=== PATIENT | male | born 1995 | race African-American/Black ===

== ENCOUNTER 2022-06-11 14:17 | Emergency (ER) | payer OTHER ==
[~2022-06-11] VITALS: Ht 182.9 cm; Wt 116.2 kg
[2022-06-11 14:18] VITALS: BP 163/84
[2022-06-11 18:37] LABS: BASO % 0.9 % (0.0-1.0); EOS # 0.2 10^3/uL (0.0-0.5); EOS % 4.9 % (0.0-3.0); HEMATOCRIT 41.5 % (42.0-52.0); HEMOGLOBIN 13.7 g/dl (13.5-17.5); LYMPH # 1.6 10^3/uL (1.5-5.0); MEAN CORPUSCULAR HEMOGLOBIN 29.3 pg (27.0-33.0); MEAN CORPUSCULAR VOLUME 88.7 fl (80.0-96.0); MONO # 0.6 10^3/uL (0.0-0.8); MONO % 13.4 % (2.0-8.0); NEUTROPHILS # 2.1 10^3/uL (1.5-8.5); NEUTROPHILS % 45.6 % (36.0-66.0); PLATELET COUNT, AUTOMATED 266 10^3/uL (150-450); RED BLOOD COUNT 4.68 10^6/uL (4.30-6.10); WHITE BLOOD COUNT 4.5 10^3/uL (4.0-10.0)
[2022-06-11 18:58] LABS: BLOOD UREA NITROGEN 17 MG/DL (7-18); CARBON DIOXIDE LEVEL 31 MEQ/L (21-32); CHLORIDE LEVEL 105 MEQ/L (98-107); CREATININE FOR GFR 1.18 MG/DL (0.70-1.30); GLOMERULAR FILTRATION RATE > 60.0 (>60); GLUCOSE, FASTING 91 MG/DL (70-100); POTASSIUM SERUM 4.1 MEQ/L (3.5-5.1); SODIUM LEVEL 138 MEQ/L (136-145)
[2022-06-11 18:59] LABS: ALBUMIN 4.1 GM/DL (3.2-5.2); ALT/SGPT 19 U/L (12-78); BILIRUBIN,DIRECT < 0.1 MG/DL (0.0-0.2); BILIRUBIN,TOTAL 0.4 MG/DL (0.2-1.0); CALCIUM LEVEL 9.3 MG/DL (8.5-10.1); LIPASE 112 U/L (73-393); TOTAL PROTEIN 7.7 GM/DL (6.4-8.2)
[2022-06-12] MEDS ORDERED: IBUP-1022 PO (00:03)
== END 2022-06-12 00:41 | disposition home or self-care (01) ==
LOC: M ED 14:17
DX: T88.1XXA Other complications following immunization, not elsewhere classified, initial encounter (principal); R59.9 Enlarged lymph nodes, unspecified

== ENCOUNTER 2022-10-05 12:17 | Inpatient (IN) | payer OTHER ==
[~2022-10-05] VITALS: Ht 180.3 cm; Wt 120.0 kg
[~2022-10-05 12:17] MED LIST: IBUP-1022 PO
[2022-10-05 17:09] LABS: HEMATOCRIT 48.5 % (42.0-52.0); HEMOGLOBIN 16.3 g/dl (13.5-17.5); MEAN CORPUSCULAR HEMOGLOBIN 29.4 pg (27.0-33.0); MEAN CORPUSCULAR HGB CONC 33.6 g/dl (32.0-36.5); MEAN CORPUSCULAR VOLUME 87.4 fl (80.0-96.0); PLATELET COUNT, AUTOMATED 314 10^3/uL (150-450); RED BLOOD COUNT 5.55 10^6/uL (4.30-6.10); WHITE BLOOD COUNT 6.5 10^3/uL (4.0-10.0)
[2022-10-05 17:46] LABS: ETHYL ALCOHOL (ETHANOL) 0.006 % (0.000-0.010)
[2022-10-05 17:48] LABS: ACETAMINOPHEN LEVEL < 2.0 UG/ML (10.0-20.0); BILIRUBIN,DIRECT 0.2 MG/DL (<0.4); SALICYLATE LEVEL < 3.0 MG/DL (<30)
[2022-10-05 17:51] LABS: THYROID STIMULATING HORMONE 1.071 uIU/ML (0.55-4.78)
[2022-10-05 17:57] LABS: ALBUMIN 4.4 G/DL (3.2-5.2); ALKALINE PHOSPHATASE 69 U/L (46-116); ALT/SGPT 22 U/L (7.0-40); AST/SGOT 31 U/L (<34); BILIRUBIN,TOTAL 0.6 MG/DL (0.3-1.2); BLOOD UREA NITROGEN 12 MG/DL (9-23); CALCIUM LEVEL 9.6 MG/DL (8.5-10.1); CARBON DIOXIDE LEVEL 30 MMOL/L (20-31); CHLORIDE LEVEL 102 MMOL/L (98-107); CREATININE FOR GFR 1.01 MG/DL (0.70-1.30); GLOMERULAR FILTRATION RATE > 60.0 (>60); GLUCOSE, FASTING 87 MG/DL (60-100); POTASSIUM SERUM 4.8 MMOL/L (3.5-5.1); SODIUM LEVEL 140 MMOL/L (136-145); TOTAL PROTEIN 7.8 G/DL (5.7-8.2)
[2022-10-05] MEDS ORDERED: IBUPROFEN 600MG TAB PO PRN (18:50)
[2022-10-05 19:27] LABS: AMPHETAMINES LEVEL URINE NEGATIVE (NEGATIVE)
[2022-10-05 19:28] LABS: BARBITURATES URINE NEGATIVE (NEGATIVE); BENZODIAZEPINES URINE NEGATIVE (NEGATIVE); CANNABINOIDS URINE NEGATIVE (NEGATIVE); COCAINE METABOLITE URINE NEGATIVE (NEGATIVE); METHADONE URINE NEGATIVE (NEGATIVE); OPIATES URINE NEGATIVE (NEGATIVE); PHENCYCLIDINE URINE NEGATIVE (NEGATIVE)
[2022-10-05] MEDS ORDERED: HOME MED LIST COMPLETE! XX SCH (22:05)
[2022-10-06] MEDS ORDERED: MAALOX 30 ML SUSP *UDC PO PRN (13:00)
[2022-10-06] MEDS ORDERED: ACETAMINOPHEN TAB 650MG DOSE (2X325MG) PO PRN (13:00)
[2022-10-06] MEDS ORDERED: MOM 30ML SUSPENSION UDC PO PRN (13:00)
[2022-10-06] MEDS: SERTRALINE HCL 50 MG TAB PO SCH (15:03)
[2022-10-07 06:25] VITALS: BP 138/65
[2022-10-07] MEDS: SERTRALINE HCL 50 MG TAB PO SCH (09:15)
[2022-10-07] MEDS ORDERED: OLANZapine 5 MG TAB PO PRN (13:45)
[2022-10-07 16:25] VITALS: BP 140/84
[2022-10-07] MEDS: traZODone 50 MG TAB PO PRN (21:18)
[2022-10-07] MEDS: PALIPERIDONE 3MG ER TAB (INVEGA) PO SCH (21:18)
[2022-10-08 06:27] VITALS: BP 136/74
[2022-10-08] MEDS: SERTRALINE 100 MG TAB PO SCH (08:48)
[2022-10-08] MEDS: PALIPERIDONE 3MG ER TAB (INVEGA) PO SCH ×2 (08:48→21:44)
[2022-10-08 16:34] VITALS: BP 129/66
[2022-10-08] MEDS: traZODone 50 MG TAB PO PRN (21:44)
[2022-10-09 06:52] VITALS: BP 127/66
[2022-10-09] MEDS: PALIPERIDONE 3MG ER TAB (INVEGA) PO SCH ×2 (09:21→20:54)
[2022-10-09] MEDS: SERTRALINE 100 MG TAB PO SCH (09:21)
[2022-10-09 19:01] VITALS: BP 139/79
[2022-10-09] MEDS: traZODone 50 MG TAB PO PRN (20:54)
[2022-10-10 06:12] VITALS: BP 127/64
[2022-10-10] MEDS ORDERED: ZOLO100T PO (07:48)
[2022-10-10] MEDS ORDERED: PALI1TAB2 PO (07:48)
[2022-10-10] MEDS ORDERED: TRAZ-252 PO (07:48)
[2022-10-10] MEDS: SERTRALINE 100 MG TAB PO SCH (08:31)
[2022-10-10] MEDS: PALIPERIDONE 3MG ER TAB (INVEGA) PO SCH (08:31)
== END 2022-10-10 10:52 | disposition home or self-care (01) | DRG 885 ==
LOC: M ED 12:17 → M ED INP 10-06 13:00 → M PSY 10-06 13:45
PROVIDERS: ADMIT Psychiatry & Neurology Psychiatry; ATTEND Student in an Organized Health Care Education/Training Program
DX: F33.3 Major depressive disorder, recurrent, severe with psychotic symptoms (principal); R45.851 Suicidal ideations; F63.9 Impulse disorder, unspecified; R45.850 Homicidal ideations; G47.00 Insomnia, unspecified

== ENCOUNTER 2024-03-13 06:49 | Emergency (ER) | payer OTHER ==
[~2024-03-13] VITALS: Ht 180.3 cm; Wt 128.5 kg
[~2024-03-13 06:49] MED LIST changes: +PALI1TAB2 PO; +TRAZ-252 PO; +ZOLO100T PO
[2024-03-13] MEDS: ONDANSETRON 4MG ORAL DISINTEGRATING TAB PO ONE (07:28)
[2024-03-13] MEDS ORDERED: DICY-61 PO (08:43)
[2024-03-13] MEDS ORDERED: ONDA4TAB6 PO (08:43)
[2024-03-13 08:49] VITALS: BP 153/95; TEMP 96.5; O2SAT 97
== END 2024-03-13 08:56 | disposition home or self-care (01) ==
LOC: M ED 06:49
DX: R11.2 Nausea with vomiting, unspecified (principal); R19.7 Diarrhea, unspecified; F32.A Depression, unspecified; Z79.899 Other long term (current) drug therapy

== ENCOUNTER 2024-07-14 09:54 | Emergency (ER) | payer OTHER ==
[~2024-07-14] VITALS: Ht 182.9 cm; Wt 129.5 kg
[~2024-07-14 09:54] MED LIST changes: +DICY-61 PO; +ONDA-282 PO
[2024-07-14 14:14] VITALS: BP 139/89; TEMP 97.5; O2SAT 98
== END 2024-07-14 14:15 | disposition home or self-care (01) ==
LOC: M ED 09:54
DX: R19.7 Diarrhea, unspecified (principal)

== ENCOUNTER 2024-10-14 13:41 | Emergency (ER) | payer OTHER ==
[~2024-10-14] VITALS: Ht 180.3 cm; Wt 129.5 kg
[2024-10-14 22:32] VITALS: BP 142/82; TEMP 97.8; O2SAT 95
== END 2024-10-14 22:30 | disposition home or self-care (01) ==
LOC: M ED 13:41
DX: M25.571 Pain in right ankle and joints of right foot (principal); M25.572 Pain in left ankle and joints of left foot